=== PATIENT | female | born 1985 | race American Indian/Alaskan Native ===

== ENCOUNTER 2017-03-17 11:45 | Emergency (ER) | payer MEDICAID ==
[2017-03-17 11:58] VITALS: BP 133/92
[2017-03-17 12:23] LABS: Hemoglobin 12.4 gm/dl (10.1-14.3); Mean Corpuscular HGB Conc 34 % (30-34); Mean Corpuscular Hemoglobin 28 pg (28-32); Mean Corpuscular Volume 84 fl (79-97); Platelet Count 346 K/mm3 (140-440); Red Blood Count 4.41 M/mm3 (3.65-5.03); Red Cell Distribution Width 14.5 % (13.2-15.2); White Blood Count 4.7 K/mm3 (4.5-11.0)
[2017-03-17 12:41] LABS: Alanine Aminotransferase 17 units/L (7-56); Albumin 4.1 g/dL (3.9-5); Albumin/Globulin Ratio 1.4 %; Alkaline Phosphatase 56 units/L (35-129); Anion Gap 17 mmol/L; Blood Urea Nitrogen 8 mg/dL (7-17); Calcium 8.9 mg/dL (8.4-10.2); Carbon Dioxide 24 mmol/L (22-30); Chloride 102.6 mmol/L (98-107); Glucose 98 mg/dL (65-100); Lipase 18 units/L (13-60); Potassium 4.1 mmol/L (3.6-5.0); Sodium 139 mmol/L (137-145)
[2017-03-17 13:19] LABS: Basophils % (Manual) 0 % (0.0-1.8); Blastocytes % (Manual) 0 %
[2017-03-17 13:20] LABS: Anisocytosis 1+; Diff Status Complete; Platelet Estimate Consistent w Auto
== END 2017-03-17 17:45 | disposition left against medical advice (07) ==
LOC: ED 11:45
DX: R10.30 Lower abdominal pain, unspecified (principal); Z53.21 Procedure and treatment not carried out due to patient leaving prior to being seen by health care provider
CPT/HCPCS: 36415; 80053; 83690; 85007; 85025

== ENCOUNTER 2017-06-24 20:32 | Emergency (ER) | payer MEDICAID ==
[2017-06-24 20:45] VITALS: BP 136/87
--- NOTE | 2017-06-24 22:38 | XRay Report ---
FINAL REPORT PROCEDURE: XR NECK SOFT TISSUE TECHNIQUE: Soft tissue neck radiographs, 2 views, including AP and lateral. CPT 48056 HISTORY: SWALLOWED A CHICKEN BONE COMPARISON: No prior studies are available for comparison. FINDINGS: Bone mineralization: Normal. Alignment: Normal. Soft tissues: Epiglottis and hypopharyngeal soft tissues normal. Foreign bodies: None. IMPRESSION: Normal Examination.
--- NOTE | 2017-06-25 02:26 | Emergency Department Report ---
- General Chief complaint: Skin/Abscess/Foreign Body Stated complaint: FB IN THROAT Time Seen by Provider: 06/25/17 00:40 Source: patient Mode of arrival: Ambulatory Limitations: No Limitations - History of Present Illness Initial comments: 31-year-old female past medical history none presents with complaint of sensation of sore throat after accidentally swallowing a piece of chicken wing. Patient states that chicken wing was less than 3 inches in length. States that this occurred a few hours ago. Patient is awake alert and oriented 3 speaking in full sentences in no audible wheezing or stridor. Patient is fully lucid. States she has scratchy sensation in the back of her throat. Denies abdominal pain denies chest pain denies palpitations denies nausea or vomiting. Denies any shortness of breath whatsoever on clinical exam. MD complaint: foreign body Onset/Timin -: hour(s) Quality: aching Consistency: intermittent Context: none Associated symptoms: denies other symptoms Treatments Prior to Arrival: none - Related Data Previous Rx's Medication Instructions Recorded Last Taken Type Fluticasone [Flonase] 1 spray NS QDAY #1 bottle 09/12/14 Unknown Rx Pseudoephedrine [Sudafed] 60 mg PO BID #30 tab 09/12/14 Unknown Rx methylPREDNISolone [Medrol Dose 4 mg PO .TAPER #1 tab.ds.pk 09/12/14 Unknown Rx Young] Ondansetron [Zofran Odt] 4 mg PO Q4H PRN #30 tab.rapdis 02/23/15 Unknown Rx traMADol [Ultram] 50 mg PO Q6HR PRN #20 tablet 02/23/15 Unknown Rx Pseudoephed/Cod/Guaifen 5 ml PO Q6H PRN #120 ml 09/16/15 Unknown Rx [Robitussin DAC 10-100-30Mg/5Ml] Allergies Allergy/AdvReac Type Severity Reaction Status Date / Time aspirin Allergy Rash Verified 03/05/13 02:02 hydrocodone [Hydrocodone] Allergy Rash Verified 03/05/13 02:02 Abscess Boil HPI - HPI Chief Complaint: Skin/Abscess/Foreign Body Stated Complaint: FB IN THROAT Time Seen by Provider: 06/25/17 00:40 Home Medications: Previous Rx's Medication Instructions Recorded Last Taken Type Fluticasone [Flonase] 1 spray NS QDAY #1 bottle 09/12/14 Unknown Rx Pseudoephedrine [Sudafed] 60 mg PO BID #30 tab 09/12/14 Unknown Rx methylPREDNISolone [Medrol Dose 4 mg PO .TAPER #1 tab.ds.pk 09/12/14 Unknown Rx Young] Ondansetron [Zofran Odt] 4 mg PO Q4H PRN #30 tab.rapdis 02/23/15 Unknown Rx traMADol [Ultram] 50 mg PO Q6HR PRN #20 tablet 02/23/15 Unknown Rx Pseudoephed/Cod/Guaifen 5 ml PO Q6H PRN #120 ml 09/16/15 Unknown Rx [Robitussin DAC 10-100-30Mg/5Ml] Allergies/Adverse Reactions: Allergies Allergy/AdvReac Type Severity Reaction Status Date / Time aspirin Allergy Rash Verified 03/05/13 02:02 hydrocodone [Hydrocodone] Allergy Rash Verified 03/05/13 02:02 ED Review of Systems ROS: Stated complaint: FB IN THROAT Other details as noted in HPI Constitutional: denies: chills, fever Eyes: denies: eye pain, eye discharge, vision change ENT: throat pain. denies: ear pain Respiratory: denies: cough, shortness of breath, wheezing Cardiovascular: denies: chest pain, palpitations Endocrine: no symptoms reported Gastrointestinal: denies: abdominal pain, nausea, diarrhea Genitourinary: denies: urgency, dysuria, discharge Musculoskeletal: denies: back pain, joint swelling, arthralgia Skin: denies: rash, lesions Neurological: denies: headache, weakness, paresthesias Psychiatric: denies: anxiety, depression Hematological/Lymphatic: denies: easy bleeding, easy bruising ED Past Medical Hx - Past Medical History Hx Asthma: Yes - Surgical History Past Surgical History?: No - Social History Smoking Status: Never Smoker Substance Use Type: None - Medications Home Medications: Home Medications Medication Instructions Recorded Confirmed Last Taken Type Fluticasone [Flonase] 1 spray NS QDAY #1 bottle 09/12/14 Unknown Rx Pseudoephedrine [Sudafed] 60 mg PO BID #30 tab 09/12/14 Unknown Rx methylPREDNISolone [Medrol Dose 4 mg PO .TAPER #1 tab.ds.pk 09/12/14 Unknown Rx Young] Ondansetron [Zofran Odt] 4 mg PO Q4H PRN #30 tab.rapdis 02/23/15 Unknown Rx traMADol [Ultram] 50 mg PO Q6HR PRN #20 tablet 02/23/15 Unknown Rx Pseudoephed/Cod/Guaifen 5 ml PO Q6H PRN #120 ml 09/16/15 Unknown Rx [Robitussin DAC 10-100-30Mg/5Ml] ED Physical Exam - General Limitations: No Limitations General appearance: alert, in no apparent distress - Head Head exam: Present: atraumatic, normocephalic - Eye Eye exam: Present: normal appearance, PERRL, EOMI - ENT ENT exam: Present: mucous membranes moist - Expanded ENT Exam Expanded Mouth exam: Present: normal external inspection Throat exam: Positive: normal inspection (no visualized foreign body in upper oropharynx. No visible chicken bone) - Neck Neck exam: Present: normal inspection - Respiratory Respiratory exam: Present: normal lung sounds bilaterally. Absent: respiratory distress - Cardiovascular Cardiovascular Exam: Present: regular rate, normal rhythm. Absent: systolic murmur, diastolic murmur, rubs, gallop - GI/Abdominal GI/Abdominal exam: Present: soft (abdomen soft nontender nondistended on 4 quadrants), normal bowel sounds - Extremities Exam Extremities exam: Present: normal inspection - Back Exam Back exam: Present: normal inspection - Neurological Exam Neurological exam: Present: alert, oriented X3 - Psychiatric Psychiatric exam: Present: normal affect, normal mood - Skin Skin exam: Present: warm, dry, intact, normal color. Absent: rash ED Course Vital Signs 06/24/17 20:37 Temperature 98.6 F Pulse Rate 102 H Respiratory 16 Rate Blood Pressure 136/87 O2 Sat by Pulse 100 Oximetry ED Medical Decision Making - Medical Decision Making A/P: Foreign body ingestion, chicken bone/wing 1-x-ray soft tissues neck unremarkable. There is no visible foreign body lodged in upper oropharynx on initial inspection. 2-I discussed case with Dr. Cardenas. As per Dr. Cardenas patient is asymptomatic we'll get GI referral and advised patient to follow-up [facility]. 3-before I was able to discuss clinical plan with patient she informed paramedics that she needed to leave. Patient signed AMA form before eloping before I could discuss the clinical plan and precautions with the patient. Before patient left I advised her that I was going to be speaking to Dr. Cardenas. She expressed that she wanted to go home quickly. I advised her to wait until I could discuss the case with Dr. Cardenas and discuss any need for further clinical management. Patient left AMA before I could reconvene with her and give her precautions Critical care attestation.: If time is entered above; I have spent that time in minutes in the direct care of this critically ill patient, excluding procedure time. ED Disposition Clinical Impression: Left against medical advice Foreign body ingestion Qualifiers: Encounter type: initial encounter Qualified Code(s): T18.9XXA - Foreign body of alimentary tract, part unspecified, initial encounter Disposition: DC-07 LEFT AGAINST MED ADVICE Is pt being admited?: No Does the pt Need Aspirin: No Condition: Stable Referrals: DIANA LANG MD [Primary Care Provider] - 3-5 Days [facility] [Provider Group] - 3-5 Days Forms: AMA Form Time of Disposition: 02:25
== END 2017-06-25 02:05 | disposition left against medical advice (07) ==
LOC: ED 20:32
DX: T18.9XXA Foreign body of alimentary tract, part unspecified, initial encounter (principal); Z88.6 Allergy status to analgesic agent; X58.XXXA Exposure to other specified factors, initial encounter; Y93.89 Activity, other specified; Y92.89 Other specified places as the place of occurrence of the external cause; Y99.8 Other external cause status
CPT/HCPCS: 70360; 99283

== ENCOUNTER 2018-07-10 18:50 | Emergency (ER) | payer MEDICAID ==
[2018-07-10 19:09] VITALS: BP 145/95
== END 2018-07-10 19:30 | disposition left against medical advice (07) ==
LOC: ED 18:50
DX: R07.89 Other chest pain (principal); Z53.21 Procedure and treatment not carried out due to patient leaving prior to being seen by health care provider
CPT/HCPCS: 93005; 93010

== ENCOUNTER 2020-04-13 14:19 | Emergency (ER) | payer SELFPAY ==
[2020-04-13 14:39] VITALS: BP 148/105
[2020-04-13 15:29] LABS: Basophils % (Auto) 0.1 % (0.0-1.8); Eosinophils % (Auto) 0.8 % (0.0-4.3); Hematocrit 36.5 % (30.3-42.9); Hemoglobin 12.2 gm/dl (10.1-14.3); Lymphocytes # (Auto) 2.2 K/mm3 (1.2-5.4); Lymphocytes % (Auto) 37.7 % (13.4-35.0); Mean Corpuscular HGB Conc 34 % (30-34); Mean Corpuscular Volume 85 fl (79-97); Monocytes # (Auto) 0.5 K/mm3 (0.0-0.8); Monocytes % (Auto) 9.2 % (0.0-7.3); Platelet Count 335 K/mm3 (140-440); Red Blood Count 4.29 M/mm3 (3.65-5.03); Red Cell Distribution Width 14.6 % (13.2-15.2)
--- NOTE | 2020-04-13 18:12 | Emergency Department Report ---
ED Female HPI - General Chief complaint: Vaginal Bleeding Stated complaint: VAGINAL BLEEDING Time Seen by Provider: 04/13/20 17:55 Source: patient Mode of arrival: Ambulatory Limitations: No Limitations - History of Present Illness Initial comments: The patient was evaluated in the emergency department for symptoms described in the history of present illness. He/she was evaluated in the context of the global COVID-19 pandemic, which necessitated consideration that the patient might be at risk for infection with the virus that causes COVID-19. I nstitutional protocols and algorithms that pertain to the evaluation of patients at risk for COVID-19 are in a state of rapid change based on information released by regulatory bodies including the CDC and federal and state organizations. These policies and algorithms were followed during the patient's care in the emergency department. Please note that these policies, procedures and recommendations changed on a rapid basis. 35-year-old -[place] female presents to the emergency room stating that she is 8 weeks and comes in with 2-week history of spotting with today having field 2 pads. Patient states that her last menstrual period was February 08, 2020. She reports she was seen by her primary care provider and had a positive urine test. Patient is 4 para 2. Patient reports she is currently on no control. She reports that she is having pelvic cramping like her menstrual period. Patient has an allergy to aspirin and hydrocodone. Patient states that she has been having pink to brown discharge on the tissue and now having bleeding. MD Complaint: vaginal bleeding, pelvic pain Onset/Timin -: week(s) Location: suprapubic Severity scale (0 -10): 4 Quality: cramping Consistency: intermittent Improves with: none Worsens with: none Are you Now?: Yes Last Menstrual Period: 02/08/20 EDC: 11/14/20 Associated Symptoms: vaginal bleeding, nausea/vomiting (No vomiting nausea) - Related Data Sexually active: No Previous Rx's Medication Instructions Recorded Last Taken Type Fluticasone [Flonase] 1 spray NS QDAY #1 bottle 09/12/14 Unknown Rx Pseudoephedrine (Nf) [Sudafed] 60 mg PO BID #30 tab 09/12/14 Unknown Rx methylPREDNISolone [Medrol Dose 4 mg PO .TAPER #1 tab.ds.pk 09/12/14 Unknown Rx Young] Ondansetron [Zofran Odt] 4 mg PO Q4H PRN #30 tab.rapdis 02/23/15 Unknown Rx traMADoL [Ultram] 50 mg PO Q6HR PRN #20 tablet 02/23/15 Unknown Rx Pseudoephed/Cod/Guaifen 5 ml PO Q6H PRN #120 ml 09/16/15 Unknown Rx [Robitussin DAC 10-100-30Mg/5Ml] Allergies Allergy/AdvReac Type Severity Reaction Status Date / Time aspirin Allergy Rash Verified 07/10/18 19:04 hydrocodone [Hydrocodone] Allergy Rash Verified 07/10/18 19:04 ED Review of Systems ROS: Stated complaint: VAGINAL BLEEDING Other details as noted in HPI Comment: All other systems reviewed and negative ED Past Medical Hx - Past Medical History Previous Medical History?: Yes Hx Asthma: Yes - Surgical History Past Surgical History?: No - Social History Smoking Status: Never Smoker Substance Use Type: Alcohol - Medications Home Medications: Home Medications Medication Instructions Recorded Confirmed Last Taken Type Fluticasone [Flonase] 1 spray NS QDAY #1 bottle 09/12/14 Unknown Rx Pseudoephedrine (Nf) [Sudafed] 60 mg PO BID #30 tab 09/12/14 Unknown Rx methylPREDNISolone [Medrol Dose 4 mg PO .TAPER #1 tab.ds.pk 09/12/14 Unknown Rx Young] Ondansetron [Zofran Odt] 4 mg PO Q4H PRN #30 tab.rapdis 02/23/15 Unknown Rx traMADoL [Ultram] 50 mg PO Q6HR PRN #20 tablet 02/23/15 Unknown Rx Pseudoephed/Cod/Guaifen 5 ml PO Q6H PRN #120 ml 09/16/15 Unknown Rx [Robitussin DAC 10-100-30Mg/5Ml] ED Physical Exam - General Limitations: No Limitations General appearance: alert, in no apparent distress - Head Head exam: Present: atraumatic, normocephalic - Eye Eye exam: Present: normal appearance - ENT ENT exam: Present: mucous membranes moist - Neck Neck exam: Present: normal inspection - Respiratory Respiratory exam: Present: normal lung sounds bilaterally. Absent: respiratory distress - Cardiovascular Cardiovascular Exam: Present: regular rate, normal rhythm. Absent: systolic murmur, diastolic murmur, rubs, gallop - GI/Abdominal GI/Abdominal exam: Present: soft, distended, tenderness (Suprapubic pelvis), normal bowel sounds - Extremities Exam Extremities exam: Present: normal inspection - Back Exam Back exam: Present: normal inspection - Neurological Exam Neurological exam: Present: alert, oriented X3, normal gait - Psychiatric Psychiatric exam: Present: normal affect, normal mood - Skin Skin exam: Present: warm, dry, intact, normal color. Absent: rash ED Course Vital Signs 04/13/20 14:38 Temperature 98.5 F Pulse Rate 86 Respiratory 18 Rate Blood Pressure 148/105 O2 Sat by Pulse 99 Oximetry ED Medical Decision Making - Lab Data Result diagrams: 04/13/20 14:44 Laboratory Tests 04/13/20 04/13/20 04/13/20 14:44 14:44 14:44 WBC 5.9 RBC 4.29 Hgb 12.2 Hct 36.5 MCV 85 MCH 29 MCHC 34 RDW 14.6 Plt Count 335 Lymph % (Auto) 37.7 H Mobile % (Auto) 9.2 H Eos % (Auto) 0.8 Baso % (Auto) 0.1 Lymph # (Auto) 2.2 Mobile # (Auto) 0.5 Eos # (Auto) 0.0 Baso # (Auto) 0.0 Seg Neutrophils % 52.2 Seg Neutrophils # 3.1 HCG, Qual Negative HCG, Quant < 2 Blood Type 04/13/20 14:44 WBC RBC Hgb Hct MCV MCH MCHC RDW Plt Count Lymph % (Auto) Mobile % (Auto) Eos % (Auto) Baso % (Auto) Lymph # (Auto) Mobile # (Auto) Eos # (Auto) Baso # (Auto) Seg Neutrophils % Seg Neutrophils # HCG, Qual HCG, Quant Blood Type O POSITIVE - Medical Decision Making 35-year-old -[place] female presents to the emergency room stating that she is 8 weeks and comes in with 2-week history of spotting with today having field 2 pads. Patient states that her last menstrual period was February 08, 2020. She reports she was seen by her primary care provider and had a positive urine test. Patient is 4 para 4. Patient reports she is currently on no control. She reports that she is having pelvic cramping like her menstrual period. Patient has an allergy to aspirin and hydrocodone. Patient states that she has been having pink to brown discharge on the tissue and now having bleeding. hCG less than 2 and negative. I discussed with patient her urine is pending. Explained to patient that she is not I have given her a copy of her lab results. Critical care attestation.: If time is entered above; I have spent that time in minutes in the direct care of this critically ill patient, excluding procedure time. ED Disposition Clinical Impression: test negative, Abnormal vaginal bleeding Disposition: TO HOME OR SELFCARE Is pt being admited?: No Does the pt Need Aspirin: No Condition: Stable Additional Instructions: test is negative. Her urinalysis is negative. He should follow-up with your primary care provider take ibuprofen and naproxen for pelvic cramping. Referrals: PRIMARY CARE,MD [Primary Care Provider] - 3-5 Days You are, primary care provider [Other] - 3-5 Days Forms: Work/School Release Form(ED)
[2020-04-13 18:19] LABS: Bilirubin,Urine NEG (Negative); Blood,Urine LG (Negative); Color,Urine Amber (Yellow); Mucus,Urine 2+ /HPF; Urobilinogen,Urine < 2.0 mg/dL (<2.0)
[2020-04-13 18:20] LABS: RBC,Urine > 182.0 /HPF (0.0-6.0)
== END 2020-04-13 18:41 | disposition home or self-care (01) ==
LOC: ED 14:19
DX: N89.8 Other specified noninflammatory disorders of vagina (principal); Z32.02 Encounter for pregnancy test, result negative; J45.909 Unspecified asthma, uncomplicated; Z79.899 Other long term (current) drug therapy; Z79.82 Long term (current) use of aspirin
CPT/HCPCS: 36415; 81001; 84702; 84703; 85025; 86900; 86901; 99283

== ENCOUNTER 2021-04-17 04:07 | Emergency (ER) | payer SELFPAY ==
[2021-04-17 04:56] LABS: Basophils % (Auto) 0.2 % (0.0-1.8); Eosinophils % (Auto) 0.6 % (0.0-4.3); Hematocrit 36.6 % (30.3-42.9); Lymphocytes # (Auto) 2.5 K/mm3 (1.2-5.4); Lymphocytes % (Auto) 39.3 % (13.4-35.0); Mean Corpuscular HGB Conc 33 % (30-34); Mean Corpuscular Volume 86 fl (79-97); Monocytes # (Auto) 0.4 K/mm3 (0.0-0.8); Monocytes % (Auto) 5.8 % (0.0-7.3); Platelet Count 352 K/mm3 (140-440); Red Blood Count 4.26 M/mm3 (3.65-5.03); Red Cell Distribution Width 14.3 % (13.2-15.2)
[2021-04-17] MEDS ORDERED: ONDANSETRON 4 MG/2 ML INJ IV ONE ×2 (05:03→07:34)
[2021-04-17] MEDS ORDERED: FAMOTIDINE 20 MG/2 ML INJ IV ONE (05:03)
--- NOTE | 2021-04-17 05:05 | Emergency Department Report ---
Blank Doc - Documentation Documentation: 36-year-old female no medical problems, non-smoker. Positive home t est 3 days and has been feeling nauseated 2 AM woke up with chest pressure radiating to back, diaphoresis, and vomited x2 Due to antacids and took Advil without relief Complains of constant chest pressure and persistent nausea. Epigastric tenderness on exam Labs, serum , cardiac work-up. EKG without acute ischemia IV Pepcid and Zofran ordered Patient to be further evaluated by oncoming physician
[2021-04-17 05:07] LABS: INR 0.93 (0.87-1.13)
[2021-04-17 05:08] LABS: Partial Thromboplastin Time 23.8 Sec. (24.2-36.6)
[2021-04-17 05:29] LABS: Alanine Aminotransferase 8 units/L (7-56); Albumin 4.1 g/dL (3.9-5); BUN/Creatinine Ratio 12; Blood Urea Nitrogen 11 mg/dL (7-17); Calcium 8.9 mg/dL (8.4-10.2); Hemolysis Index 2
--- NOTE | 2021-04-17 07:06 | XRay Report ---
CHEST 2 VIEWS INDICATION / CLINICAL INFORMATION: chest pain. COMPARISON: None available. FINDINGS: SUPPORT DEVICES: None. HEART / MEDIASTINUM: No significant abnormality. LUNGS / PLEURA: No significant pulmonary or pleural abnormality. No pneumothorax. ADDITIONAL FINDINGS: No significant additional findings. IMPRESSION: 1. No acute findings. Signer Name: Otto Gipson MD Signed: 04/17/2021 7:01 AM Workstation Name: [id number]
[2021-04-17] MEDS ORDERED: SODIUM CHLORIDE 0.9% 1000 ML 1,000 ML IV ONE (07:34)
--- NOTE | 2021-04-17 07:36 | Emergency Department Report ---
ED General Adult HPI - General Chief complaint: Chest Pain Stated complaint: CHEST PAIN Time Seen by Provider: 04/17/21 06:34 Source: patient Mode of arrival: Ambulatory Limitations: No Limitations - History of Present Illness Initial comments: Patient is 36 years old female 4 para 3. Patient presented to the ER complaining of nausea and vomiting for the last 2 to 3 days. Patient stated that she just found that she is by doing a home test. Patient denied any abdominal pain, vaginal bleeding or vaginal discharge. Patient also denied any fever or chills. No chest pain or shortness of breath. - Related Data Previous Rx's Medication Instructions Recorded Last Taken Type Fluticasone [Flonase] 1 spray NS QDAY #1 bottle 09/12/14 Unknown Rx Pseudoephedrine (Nf) [Sudafed] 60 mg PO BID #30 tab 09/12/14 Unknown Rx methylPREDNISolone [Medrol Dose 4 mg PO .TAPER #1 tab.ds.pk 09/12/14 Unknown Rx Young] Ondansetron [Zofran Odt] 4 mg PO Q4H PRN #30 tab.rapdis 02/23/15 Unknown Rx traMADoL [Ultram] 50 mg PO Q6HR PRN #20 tablet 02/23/15 Unknown Rx Pseudoephed/Cod/Guaifen 5 ml PO Q6H PRN #120 ml 09/16/15 Unknown Rx [Robitussin DAC 10-100-30Mg/5Ml] Allergies Allergy/AdvReac Type Severity Reaction Status Date / Time aspirin Allergy Rash Verified 04/17/21 08:20 hydrocodone [Hydrocodone] Allergy Rash Verified 04/17/21 08:20 ED Review of Systems ROS: Stated complaint: CHEST PAIN Other details as noted in HPI Comment: All other systems reviewed and negative Constitutional: denies: chills, fever Respiratory: denies: cough, shortness of breath, SOB with exertion Cardiovascular: denies: chest pain, palpitations Gastrointestinal: nausea, vomiting. denies: abdominal pain, diarrhea, constipation, hematemesis, melena, hematochezia Musculoskeletal: denies: back pain ED Past Medical Hx - Past Medical History Previous Medical History?: Yes Hx Asthma: Yes - Surgical History Past Surgical History?: No - Social History Smoking Status: Never Smoker - Medications Home Medications: Home Medications Medication Instructions Recorded Confirmed Last Taken Type Fluticasone [Flonase] 1 spray NS QDAY #1 bottle 09/12/14 Unknown Rx Pseudoephedrine (Nf) [Sudafed] 60 mg PO BID #30 tab 09/12/14 Unknown Rx methylPREDNISolone [Medrol Dose 4 mg PO .TAPER #1 tab.ds.pk 09/12/14 Unknown Rx Young] Ondansetron [Zofran Odt] 4 mg PO Q4H PRN #30 tab.rapdis 02/23/15 Unknown Rx traMADoL [Ultram] 50 mg PO Q6HR PRN #20 tablet 02/23/15 Unknown Rx Pseudoephed/Cod/Guaifen 5 ml PO Q6H PRN #120 ml 09/16/15 Unknown Rx [Robitussin DAC 10-100-30Mg/5Ml] ED Physical Exam - General Limitations: No Limitations General appearance: alert, in no apparent distress - Head Head exam: Present: atraumatic, normocephalic, normal inspection - ENT ENT exam: Present: mucous membranes dry - Neck Neck exam: Present: normal inspection, full ROM. Absent: tenderness, meningismus - Respiratory Respiratory exam: Present: normal lung sounds bilaterally - Cardiovascular Cardiovascular Exam: Present: regular rate, normal rhythm, normal heart sounds - GI/Abdominal GI/Abdominal exam: Present: soft, normal bowel sounds. Absent: distended, tenderness, guarding, rebound, rigid, organomegaly, mass, bruit, pulsatile mass, hernia - Extremities Exam Extremities exam: Present: normal inspection, full ROM, normal capillary refill. Absent: tenderness, pedal edema, joint swelling, calf tenderness - Back Exam Back exam: Present: normal inspection, full ROM. Absent: CVA tenderness (R), CVA tenderness (L) - Neurological Exam Neurological exam: Present: alert, oriented X3, CN II-XII intact, normal gait, reflexes normal - Psychiatric Psychiatric exam: Present: normal mood - Skin Skin exam: Present: dry, intact, normal color ED Course Vital Signs 04/17/21 04/17/21 04/17/21 04:14 05:34 06:17 Temperature 98.9 F Pulse Rate 89 70 75 Respiratory 18 11 L 14 Rate Blood Pressure 141/83 Blood Pressure 132/94 152/99 [Left] O2 Sat by Pulse 97 100 100 Oximetry 04/17/21 04/17/21 04/17/21 07:25 07:40 09:12 Temperature Pulse Rate 87 76 Respiratory 16 14 Rate Blood Pressure Blood Pressure 147/86 134/90 [Left] O2 Sat by Pulse 98 99 100 Oximetry ED Medical Decision Making - Lab Data Result diagrams: 04/17/21 04:40 04/17/21 04:40 - Medical Decision Making Patient is 36 years old female 4 para 3. Patient presented to the ER complaining of nausea and vomiting for the last 2 to 3 days. Patient stated that she just found that she is by doing a home test. Patie nt denied any abdominal pain, vaginal bleeding or vaginal discharge. Patient also denied any fever or chills. No chest pain or shortness of breath. Patient stated that she is feeling much better. No more nausea or vomiting. Labs reviewed and is unremarkable. Patient given prescription for Zofran and advised to follow-up with her primary care physician in the next 2 to 3 days and to return to the ER if she develop any new symptoms. Critical care attestation.: If time is entered above; I have spent that time in minutes in the direct care of this critically ill patient, excluding procedure time. ED Disposition Clinical Impression: Nausea/vomiting in Disposition: 01 HOME / SELF CARE / HOMELESS Is pt being admited?: No Condition: Stable Instructions: Nausea and Vomiting, Adult Referrals: PRIMARY CARE, [Primary Care Provider] - 3-5 Days
[2021-04-17 13:01] LABS: Bilirubin,Urine NEG (Negative); Blood,Urine NEG (Negative); Color,Urine Straw (Yellow); Mucus,Urine FEW /HPF; Protein,Urine <15 mg/dL mg/dL (Negative); Urobilinogen,Urine < 2.0 mg/dL (<2.0)
[2021-04-17 14:24] VITALS: BP 110/78
--- NOTE | 2021-04-18 18:56 | Electrocardiograph Report ---
[facility] Test Date: 2021-04-17 Test Time: 04:17:00 Pat Name: MOIZ REYES Department: Room: Gender: F Motor Vehicle Technician: PARAG : 1985 Requested By: SHARI LANDRUM Order Number: [id number] Reading MD: Lorena Kearns Measurements Intervals [place] Rate: 68 P: 48 NE: 141 QRS: 31 QRSD: 83 T: 34 QT: 410 QTc: 435 Interpretive Statements Sinus rhythm No previous ECG available for comparison Electronically Signed On 04-18-2021 18:55:54 EDT by Lorena Kearns
== END 2021-04-17 14:25 | disposition home or self-care (01) ==
LOC: ED 04:07
DX: O99.519 Diseases of the respiratory system complicating pregnancy, unspecified trimester (principal); O21.8 Other vomiting complicating pregnancy; J45.909 Unspecified asthma, uncomplicated; Z3A.00 Weeks of gestation of pregnancy not specified; Z88.5 Allergy status to narcotic agent; Z88.6 Allergy status to analgesic agent
CPT/HCPCS: 36415; 71046; 80053; 81001; 84484; 84702; 85025; 85610; 85730; 93005; 96361; 96374; 96375; 96376; 99284; J2405; J7030

== ENCOUNTER 2021-05-15 06:46 | Emergency (ER) | payer MEDICAID ==
[2021-05-15 06:52] VITALS: BP 126/81
[2021-05-15] MEDS ORDERED: MORPHINE 4 MG/1 ML INJ IV ONE (07:04)
[2021-05-15] MEDS ORDERED: PANTOPRAZOLE 40 MG INJ IV ONE (07:04)
[2021-05-15] MEDS ORDERED: ONDANSETRON 4 MG/2 ML INJ IV ONE (07:04)
[2021-05-15] MEDS ORDERED: LACTATED RINGERS 1,000 ML IV ONE (07:05)
--- NOTE | 2021-05-15 07:10 | Emergency Department Report ---
ED General Adult HPI - General Chief complaint: Abdominal Pain Stated complaint: ABD/BACK PAIN Time Seen by Provider: 05/15/21 06:56 Source: patient, RN notes reviewed, old records reviewed Mode of arrival: Ambulatory Limitations: No Limitations - History of Present Illness Initial comments: The patient is a 36-year-old female. She is not COVID-19 vaccinated. She is 5, para 4. Her DOPE FIRER is "my DOPE [facility]ER." She reports that she was presumptively diagnosed with GERD/gastritis last month at [place], and started on Pepcid. She presents to the ER today with a complaint of nontraumatic right posterior thoracic pain, that radiates around to her right upper quadrant and epigastric region. It is associated with nausea and vomiting. The patient denies headache, dysuria, lower abdominal pain, vaginal bleeding, fever, chills, extremity weakness and numbness. She describes the pain is sharp. It waxes and wanes. It decreases with position and rest. This is similar to her pain from last month. Denies travel, surgery, immobilization, leg pain, leg swelling, prior history of DVT/PE. Reports that she is able to tolerate morphine, fentanyl or Dilaudid/hydromorphone for pain. -: Gradual, hour(s) Location: back Radiation: abdomen Severity scale (0 -10): 8 Quality: other Consistency: other Improves with: other Worsens with: other - Related Data Previous Rx's Medication Instructions Recorded Last Taken Type Fluticasone [Flonase] 1 spray NS QDAY #1 bottle 09/12/14 Unknown Rx Doxylamine Succinate/Vit B6 1 each PO QHS PRN #30 tablet. 05/15/21 Unknown Rx [Isacc Gannon 10-10 mg Tablet] Andressa Root [Andressa] 250 mg PO QID PRN #30 capsule 05/15/21 Unknown Rx Metoclopramide [Reglan] 10 mg PO QID PRN #30 tablet 05/15/21 Unknown Rx Promethazine HCl [Phenergan SUPPOS] 25 mg RC Q6HR PRN #15 supp.rect 05/15/21 Unknown Rx Allergies Allergy/AdvReac Type Severity Reaction Status Date / Time aspirin Allergy Rash Verified 05/15/21 06:52 hydrocodone [Hydrocodone] Allergy Rash Verified 05/15/21 06:52 ED Review of Systems ROS: Stated complaint: ABD/BACK PAIN Other details as noted in HPI Constitutional: denies: fever Eyes: denies: eye discharge Respiratory: denies: cough, shortness of breath Cardiovascular: denies: chest pain Gastrointestinal: abdominal pain, nausea, vomiting Genitourinary: denies: dysuria Musculoskeletal: back pain Neurological: denies: weakness Hematological/Lymphatic: denies: easy bleeding ED Past Medical Hx - Past Medical History Hx Asthma: Yes - Surgical History Past Surgical History?: No - Social History Smoking Status: Never Smoker - Medications Home Medications: Home Medications Medication Instructions Recorded Confirmed Last Taken Type Fluticasone [Flonase] 1 spray NS QDAY #1 bottle 09/12/14 Unknown Rx Doxylamine Succinate/Vit B6 1 each PO QHS PRN #30 tablet. 05/15/21 Unknown Rx [Diclegis Dr 10-10 mg Tablet] Andressa Root [Andressa] 250 mg PO QID PRN #30 capsule 05/15/21 Unknown Rx Metoclopramide [Reglan] 10 mg PO QID PRN #30 tablet 05/15/21 Unknown Rx Promethazine HCl [Phenergan SUPPOS] 25 mg RC Q6HR PRN #15 supp.rect 05/15/21 Unknown Rx ED Physical Exam - General Limitations: No Limitations General appearance: alert, in no apparent distress - Head Head exam: Present: atraumatic, normocephalic - Eye Eye exam: Present: normal appearance, EOMI. Absent: nystagmus - ENT ENT exam: Present: normal exam, normal orophraynx, mucous membranes moist, normal external ear exam - Neck Neck exam: Present: normal inspection, full ROM. Absent: tenderness, meningismus - Respiratory Respiratory exam: Present: normal lung sounds bilaterally. Absent: respiratory distress, wheezes, rales, rhonchi, stridor, decreased breath sounds - Cardiovascular Cardiovascular Exam: Present: regular rate, normal rhythm, normal heart sounds. Absent: bradycardia, tachycardia, irregular rhythm, systolic murmur, diastolic murmur, rubs, gallop - GI/Abdominal GI/Abdominal exam: Present: soft, tenderness (There is epigastric and right upper quadrant tenderness to deep palpation.). Absent: distended, guarding, rebound, rigid, pulsatile mass - Extremities Exam Extremities exam: Present: normal inspection, full ROM, other (2+ pulses noted in the bilateral upper and lower extremities. There is no palpable cord. negative Homans sign. Muscular compartments are soft. The pelvis is stable.). Absent: pedal edema, calf tenderness - Back Exam Back exam: Present: normal inspection, full ROM. Absent: tenderness, CVA tenderness (R), CVA tenderness (L), paraspinal tenderness, vertebral tenderness - Neurological Exam Neurological exam: Present: alert, oriented X3, other (No facial droop. Tongue midline. Extraocular movements intact bilaterally. Facial sensation intact to light touch in V1, V2, V3 distribution bilaterally. 5 and a 5 strength in 4 extremities. Sensation intact to light touch in 4 extremities.). Absent: motor sensory deficit - Psychiatric Psychiatric exam: Present: normal affect, normal mood - Skin Skin exam: Present: warm, dry, intact, normal color. Absent: rash ED Course Vital Signs 05/15/21 06:49 Temperature 98.2 F Pulse Rate 71 Respiratory 18 Rate Blood Pressure 126/81 [Right] O2 Sat by Pulse 98 Oximetry - Reevaluation(s) Reevaluation #1: 05/15/21 07:09 Differential diagnosis, including but not limited to: GERD, gastritis, hiatal hernia, reflux, pancreatitis, cholecystitis, hepatitis, urinary tract infection, pyelonephritis Assessment and plan: 36-year-old female, who was afebrile, with reassuring vital signs, who reports that she is 8 weeks , 5, para 4, presenting to the ER today with complaint of right posterior thoracic pain that radiates around to her right upper quadrant and epigastric region. She has some pain and tenderness to deep palpation. Denies travel, surgery, immobilization, leg pain or leg swelling. Besides , denies DVT/PE risk factors. We will treat the patient's symptoms. We will obtain appropriate laboratory studies, EKG, urinalysis, right upper quadrant ultrasound, and ultrasound. I discussed this plan of care with the patient. She articulated understanding. She is agreeable to the diagnostic work-up and therapeutic interventions recommended. Reassess after initial data points 05/15/21 09:17 No active vomiting. Urinalysis pending. Right upper quadrant ultrasound unremarkable. ultrasound shows 18-week , with subchorionic hemorrhage. Type and screen ordered. Patient resting comfortably in stretcher, and in no acute distress 05/15/21 11:01 No active vomiting. Patient resting comfortably. As a courtesy, discussed hist ory, physical, laboratory studies and imaging studies with nursing metal engraver for my DOPE FIRER. She will make a note in the patient's chart, the patient may follow- up expectantly as an outpatient. Belly soft on repeat exam. Patient resting comfortably, suitable for outpatient discharge. ED Medical Decision Making - Lab Data Result diagrams: 05/15/21 07:26 05/15/21 07:26 Vital Signs 05/15/21 06:49 Temperature 98.2 F Pulse Rate 71 Respiratory 18 Rate Blood Pressure 126/81 [Right] O2 Sat by Pulse 98 Oximetry - EKG Data -: EKG Interpreted by Ar EKG shows normal: sinus rhythm Rate: normal - EKG Data When compared to previous EKG there are: no significant change Interpretation: unchanged when compared t 05/15/21 07:16 EKG today as compared to prior EKG from 04/17/2021 Sinus rhythm, 73 bpm. Normal axis, normal P wave axis. Normal intervals. High left ventricular voltage. EKG is an age appropriate variant. This EKG is not a STEMI. - Radiology Data Radiology results: pending, report reviewed, image reviewed ULTRASOUND PELVIS INDICATION: ruq pain n/v. TECHNIQUE: Transabdominal. Duplex Color Doppler used: Yes. COMPARISON: None available FINDINGS: Uterus: Present. Size: 14.1 x 7.1 x 7.6 cm. Endometrial complex: Single viable intrauterine dated 18 weeks 4 days by ultrasound. heart tones are 153 bpm. A subchorionic hemorrhage measures 5.4 x 0.8 cm. Mass lesions: None. Additional findings: None. Right Ovary -- Normal. Blood flow: Normal. Cyst or mass: None. Left Ovary-- Normal. Blood flow: Normal. Cyst or mass: None. Urinary Bladder: Normal. Free Fluid: None. Additional Findings: None. IMPRESSION: 1. Single viable intrauterine dated 18 weeks 4 days by ultrasound. 2. Large, subchorionic hemorrhage. 3. No adnexal abnormality. Signer Name: Jonel Mock MD Signed: 05/15/2021 8:00 AM Workstation Name: [email or web address] ULTRASOUND ABDOMEN, LIMITED (RIGHT UPPER QUADRANT) INDICATION: ruq pain n/v. COMPARISON: None available. FINDINGS: Pancreas: Visualized portion shows no significant abnormality. Liver: Normal. Gallbladder: Normal. Bile ducts: Borderline. Common Bile Duct measures 6.3 mm. Free fluid: None. Additional Find ings: None. IMPRESSION: No gallstones. Borderline size common bile duct. Signer Name: Jonel Mock MD Signed: 05/15/2021 8:01 AM Workstation Name: [email or web address] Critical care attestation.: If time is entered above; I have spent that time in minutes in the direct care of this critically ill patient, excluding procedure time. ED Disposition Clinical Impression: Right upper quadrant abdominal pain, Nausea and vomiting during Subchorionic hemorrhage Qualifiers: Fetus number: single or unspecified fetus Trimester: second trimester Qualified Code(s): O41.8X20 - Other specified disorders of amniotic fluid and membranes, second trimester, not applicable or unspecified Disposition: HOME / SELF CARE / HOMELESS Is pt being admited?: No Does the pt Need Aspirin: No Condition: Good Instructions: Nausea and Vomiting, Adult, [id number], Subchorionic Hematoma, Abdominal Pain (ED) Additional Instructions: Please take the prescribed Tylenol as needed for physical pain. Patient may also alternate [id number] Pepcid, or Protonix as needed for physical pain. Avoid consumption of Motrin, ibuprofen, Naprosyn, Aleve, heavy and spicy foods. Take the nausea medications as needed and directed, use the Phenergan suppository for intractable nausea and vomiting not relieved by the aforementioned medications Advance diet as tolerated. Use the Phenergan suppository as needed for nausea and vomiting not relieved by other oral medications. Please follow-up with your outpatient DOPE FIRER within the next 5 to 7 days for a repeat checkup and evaluation. Please return to the emergency room right away with new pain, worsened pain, migration of pain, projectile vomiting, change in mental status, confusion, inability to tolerate liquid feeds, new, worsened or different symptoms not present on the initial emergency room evaluation We also recommend that the patient avoid heavy lifting, sexual activity, and strenuous physical activity. Do not participate in heavy lifting or sexual activity until cleared to do so by your DOPE [facility]ER doctor. Referrals: [facility] [Provider Group] - 3-5 Days Forms: Work/School Release Form(ED)
[2021-05-15 07:40] LABS: Basophils % (Auto) 0.3 % (0.0-1.8); Hematocrit 37.9 % (30.3-42.9); Hemoglobin 12.3 gm/dl (10.1-14.3); Lymphocytes % (Auto) 14.4 % (13.4-35.0); Mean Corpuscular HGB Conc 32 % (30-34); Mean Corpuscular Volume 84 fl (79-97); Monocytes # (Auto) 0.2 K/mm3 (0.0-0.8); Monocytes % (Auto) 2.5 % (0.0-7.3); Platelet Count 372 K/mm3 (140-440); Red Cell Distribution Width 14.1 % (13.2-15.2)
[2021-05-15 07:55] LABS: INR 0.93 (0.87-1.13)
[2021-05-15 08:04] LABS: Alanine Aminotransferase 11 units/L (7-56); Albumin 4.3 g/dL (3.9-5); BUN/Creatinine Ratio 12; Blood Urea Nitrogen 11 mg/dL (7-17); Calcium 9.9 mg/dL (8.4-10.2); Hemolysis Index 9
[2021-05-15 08:05] LABS: Bilirubin,Direct < 0.2 mg/dL (0-0.2)
--- NOTE | 2021-05-15 09:04 | Ultrasound Report ---
ULTRASOUND PELVIS INDICATION: ruq pain n/v. TECHNIQUE: Transabdominal. Duplex Color Doppler used: Yes. COMPARISON: None available FINDINGS: Uterus: Present. Size: 14.1 x 7.1 x 7.6 cm. Endometrial complex: Single viable intrauterine dated 18 weeks 4 days by ultrasound. heart tones are 153 bpm. A subchorionic hemorrhage measures 5.4 x 0.8 cm. Mass lesions: None. Additional findings: None. Right Ovary -- Normal. Blood flow: Normal. Cyst or mass: None. Left Ovary-- Normal. Blood flow: Normal. Cyst or mass: None. Urinary Bladder: Normal. Free Fluid: None. Additional Findings: None. IMPRESSION: 1. Single viable intrauterine dated 18 weeks 4 days by ultrasound. 2. Large, subchorionic hemorrhage. 3. No adnexal abnormality. Signer Name: Jonel Mock MD Signed: 05/15/2021 9:00 AM Workstation Name: [email or web address]
--- NOTE | 2021-05-15 09:05 | Ultrasound Report ---
ULTRASOUND ABDOMEN, LIMITED (RIGHT UPPER QUADRANT) INDICATION: ruq pain n/v. COMPARISON: None available. FINDINGS: Pancreas: Visualized portion shows no significant abnormality. Liver: Normal. Gallbladder: Normal. Bile ducts: Borderline. Common Bile Duct measures 6.3 mm. Free fluid: None. Additional Findings: None. IMPRESSION: No gallstones. Borderline size common bile duct. Signer Name: Jonel Mock MD Signed: 05/15/2021 9:01 AM Workstation Name: [id number]
[2021-05-15] MEDS ORDERED: ACETAMINOPHEN 325 MG TAB PO ONE (09:38)
[2021-05-15 10:12] LABS: Bilirubin,Urine NEG (Negative); Blood,Urine NEG (Negative); Color,Urine Yellow (Yellow); Mucus,Urine 1+ /HPF; Protein,Urine <15 mg/dL mg/dL (Negative); Urobilinogen,Urine < 2.0 mg/dL (<2.0)
[2021-05-15 10:19] LABS: Amphetamine Screen,Urine Negative; Benzodiazepines Screen,Urine Negative; Cannabinoid Screen,Urine Negative; Cocaine Screen,Urine Negative; Methadone Screen,Urine Negative
[2021-05-15 10:34] LABS: Opiate Screen,Urine Positive
== END 2021-05-15 12:10 | disposition home or self-care (01) ==
LOC: ED 06:46
DX: O21.9 Vomiting of pregnancy, unspecified (principal); O26.892 Other specified pregnancy related conditions, second trimester; O41.8X20 Other specified disorders of amniotic fluid and membranes, second trimester, not applicable or unspecified; R10.11 Right upper quadrant pain; Z79.899 Other long term (current) drug therapy; J45.909 Unspecified asthma, uncomplicated; Z88.8 Allergy status to other drugs, medicaments and biological substances; Z3A.18 18 weeks gestation of pregnancy
CPT/HCPCS: 36415; 76705; 76801; 80048; 80076; 80307; 81001; 83690; 84702; 85025; 85610; 86850; 86900; 86901; 93005; 96361; 96374; 96375; 99284; C9113; J2270; J2405; J7120; J3490

== ENCOUNTER 2021-06-17 03:15 | Emergency (ER) | payer MEDICAID ==
[2021-06-17 03:22] VITALS: BP 143/96
[2021-06-17] MEDS ORDERED: SODIUM CHLORIDE 0.9% 1000 ML 1,000 ML IV ONE (04:45)
--- NOTE | 2021-06-17 06:49 | Emergency Department Report ---
- General Chief Complaint: Upper Respiratory Infection Stated Complaint: COUGH CHILLS WEAKNESS Source: patient Mode of arrival: Ambulatory Limitations: No Limitations - History of Present Illness Initial Comments: Patient is a 36-year-old -[place] female with no past medical history but who is approximately 13 weeks gestation presents to the ED with complaint of acute onset persistent sore throat, dysphagia, nasal and sinus congestion, frontal sinus pressure, diffuse body aches and pains, persistent intermittent fever of up to 103 F for the last 3 days. Patient states that she has been taking Tylenol as needed for fever but the fever has been persistent despite the medications. Patient denies dizziness, syncope, nausea, vomiting, diarrhea, abdominal pain, vaginal bleeding, dysuria, urinary frequency and urgency, chest pain or shortness of breath. MD Complaint: fever, cough, sore throat, rhinorrhea, nasal congestion, sinus pain -: Sudden, days(s) Severity: severe Severity scale (0 -10): 8 Quality: sharp, aching Consistency: constant Improves With: nothing Worsens With: nothing Associated Symptoms: fever, chills, myalgias, rhinorrhea, nasal congestion, sore throat, cough. denies: diaphoresis, headache, chest pain, shortness of breath, abdominal pain, nausea, vomiting, diarrhea, dysuria, rash, confusion, right sweats, weight loss, epistaxis, hoarseness, ear pain Treatments Prior to Arrival: Acetaminophen - Related Data Previous Rx's Medication Instructions Recorded Last Taken Type Fluticasone [Flonase] 1 spray NS QDAY #1 bottle 09/12/14 Unknown Rx Doxylamine Succinate/Vit B6 1 each PO QHS PRN #30 tablet. 05/15/21 Unknown Rx [Isacc Gannon 10-10 mg Tablet] Andressa Root [Andressa] 250 mg PO QID PRN #30 capsule 05/15/21 Unknown Rx Metoclopramide [Reglan] 10 mg PO QID PRN #30 tablet 05/15/21 Unknown Rx Promethazine HCl [Phenergan SUPPOS] 25 mg RC Q6HR PRN #15 supp.rect 05/15/21 Unknown Rx Acetaminophen [Tylenol] 1,000 mg PO Q6HR PRN #30 tablet 06/17/21 Unknown Rx Azithromycin [Zithromax Z-RYLEE] 250 mg PO DAILY #6 tablet 06/17/21 Unknown Rx Lidocaine Viscous 2% 10 ml PO Q6H PRN #120 ml 06/17/21 Unknown Rx Ondansetron [Zofran Odt] 4 mg PO Q6HR PRN #15 tab.rapdis 06/17/21 Unknown Rx Allergies Allergy/AdvReac Type Severity Reaction Status Date / Time aspirin Allergy Rash Verified 05/15/21 06:52 hydrocodone [Hydrocodone] Allergy Rash Verified 05/15/21 06:52 ED Review of Systems ROS: Stated complaint: COUGH CHILLS WEAKNESS Other details as noted in HPI Constitutional: denies: chills, fever Eyes: denies: eye pain, eye discharge, vision change ENT: throat pain, congestion. denies: ear pain Respiratory: cough. denies: shortness of breath, wheezing Cardiovascular: denies: chest pain, palpitations Endocrine: no symptoms reported Gastrointestinal: denies: abdominal pain, nausea, vomiting, diarrhea Genitourinary: denies: urgency, dysuria, discharge Musculoskeletal: arthralgia, myalgia. denies: back pain, joint swelling Skin: denies: rash, lesions Neurological: denies: headache, weakness, paresthesias Psychiatric: denies: anxiety, depression Hematological/Lymphatic: denies: easy bleeding, easy bruising ED Past Medical Hx - Past Medical History Previous Medical History?: Yes Hx Asthma: Yes - Surgical History Past Surgical History?: No - Social History Smoking Status: Never Smoker - Medications Home Medications: Home Medications Medication Instructions Recorded Confirmed Last Taken Type Fluticasone [Flonase] 1 spray NS QDAY #1 bottle 09/12/14 Unknown Rx Doxylamine Succinate/Vit B6 1 each PO QHS PRN #30 tablet. 05/15/21 Unknown Rx [Isacc Gannon 10-10 mg Tablet] Andressa Root [Andressa] 250 mg PO QID PRN #30 capsule 05/15/21 Unknown Rx Metoclopramide [Reglan] 10 mg PO QID PRN #30 tablet 05/15/21 Unknown Rx Promethazine HCl [Phenergan SUPPOS] 25 mg RC Q6HR PRN #15 supp.rect 05/15/21 Unknown Rx Acetaminophen [Tylenol] 1,000 mg PO Q6HR PRN #30 tablet 06/17/21 Unknown Rx Azithromycin [Zithromax Z-RYLEE] 250 mg PO DAILY #6 tablet 06/17/21 Unknown Rx Lidocaine Viscous 2% 10 ml PO Q6H PRN #120 ml 06/17/21 Unknown Rx Ondansetron [Zofran Odt] 4 mg PO Q6HR PRN #15 tab.rapdis 06/17/21 Unknown Rx ED Physical Exam - General Limitations: No Limitations General appearance: alert, in no apparent distress - Head Head exam: Present: atraumatic, normocephalic, normal inspection - Eye Eye exam: Present: normal appearance, PERRL, EOMI Pupils: Present: normal accommodation - ENT ENT exam: Present: mucous membranes moist, TM's normal bilaterally, normal external ear exam, other (Erythematous oropharynx and tonsils; grossly congested nasal passages; palpable frontal sinus tenderness) - Neck Neck exam: Present: normal inspection, tenderness, full ROM - Respiratory Respiratory exam: Present: normal lung sounds bilaterally. Absent: respiratory distress, wheezes, rales, rhonchi, chest wall tenderness, accessory muscle use, decreased breath sounds, prolonged expiratory - Cardiovascular Cardiovascular Exam: Present: normal rhythm, tachycardia, normal heart sounds. Absent: systolic murmur, diastolic murmur, rubs, gallop - GI/Abdominal GI/Abdominal exam: Present: soft, normal bowel sounds. Absent: distended, tenderness, rebound, rigid, hyperactive bowel sounds, hypoactive bowel sounds, organomegaly - Extremities Exam Extremities exam: Present: normal inspection, full ROM, normal capillary refill - Back Exam Back exam: Present: normal inspection, full ROM. Absent: tenderness, CVA tenderness (R), CVA tenderness (L), muscle spasm, paraspinal tenderness, vertebral tenderness - Neurological Exam Neurological exam: Present: alert, oriented X3, CN II-XII intact, normal gait, reflexes normal - Psychiatric Psychiatric exam: Present: normal affect, normal mood - Skin Skin exam: Present: warm, dry, intact, normal color. Absent: rash ED Course Vital Signs 06/17/21 06/17/21 06/17/21 03:17 09:41 10:59 Temperature 98.0 F 99.5 F Pulse Rate 136 H 107 H Respiratory 18 Rate Blood Pressure 143/96 O2 Sat by Pulse 96 Oximetry ED Medical Decision Making - Medical Decision Making This is a 36-year-old -[place] female with no past medical history but who is approximately 13 weeks gestation presents to the ED with complaint of acute onset persistent sore throat, dysphagia, nasal and sinus congestion, frontal sinus pressure, diffuse body aches and pains, persistent intermittent fever of up to 103 F for the last 3 days. Patient states that she has been taking Tylenol as needed for fever but the fever has been persistent despite the medications. In the ED, patient is alert and oriented x3 and is not in distress. Patient is however tachycardic but afebrile in triage. Rapid influenza test was negative but rapid strep test was positive for group A strep. Patient was treated in the ED with normal saline 1 L IV bolus x1. On reevaluation, patient's tachycardia resolved medication. Patient was discharged home on antibiotics and advised to continue taking Tylenol as needed for pain and fever and to take antibiotics to the end for streptococcal pharyngitis. 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 - Differential Diagnosis URI; sinusitis; strep pharyngitis; tonsillitis; Critical care attestation.: If time is entered above; I have spent that time in minutes in the direct care of this critically ill patient, excluding procedure time. ED Disposition Clinical Impression: Fever and chills, Acute upper respiratory infection, Acute bacterial tonsillitis, Acute streptococcal pharyngitis Disposition: 01 HOME / SELF CARE / HOMELESS Is pt being admited?: No Does the pt Need Aspirin: No Condition: Stable Instructions: Tonsillitis, [id number], Strep Throat, Adult, [id number], Upper Respiratory Infection, Adult, [id number], Fever, Adult, [id number] Additional Instructions: All lab test results were reviewed and showed a positive test for group A strep pharyngitis. Therefore take medications with food, drink plenty of fluids and follow-up with your primary care physician or INFANTRY [employer] CRE[employer] physician in 5 to 7 days for reevaluation. Return to the ED immediately if symptoms get worse. Prescriptions: Acetaminophen [Tylenol] 1,000 mg PO Q6HR PRN #30 tablet PRN Reason: Pain or fever Lidocaine Viscous 2% 10 ml PO Q6H PRN #120 ml PRN Reason: Sore Throat Azithromycin [Zithromax Z-RYLEE] 250 mg PO DAILY #6 tablet Ondansetron [Zofran Odt] 4 mg PO Q6HR PRN #15 tab.rapdis PRN Reason: Nausea Referrals: HALLIE PRUITT MD [Staff Physician] - 3-5 Days Time of Disposition: 06:51 Print Language: CAMEROONIAN
[2021-06-17] MEDS ORDERED: ACETAMINOPHEN 500 MG TAB PO STA (09:26)
== END 2021-06-17 10:31 | disposition home or self-care (01) ==
LOC: ED 03:15
DX: O26.891 Other specified pregnancy related conditions, first trimester (principal); R50.9 Fever, unspecified; O99.511 Diseases of the respiratory system complicating pregnancy, first trimester; J06.9 Acute upper respiratory infection, unspecified; J03.90 Acute tonsillitis, unspecified
CPT/HCPCS: 87400; 87430; 96360; 99283; J7030; Q0162